=== PATIENT | male | born 1950 | race Caucasian/White ===

== ENCOUNTER 2016-12-26 22:12 | Emergency (ER) | payer MEDICARE, BC ==
[~2016-12-26] VITALS: Ht 157.5 cm; Wt 62.0 kg
[~2016-12-26 22:12] MED LIST: AMOX875 PO; ASPI1TAB7 PO; ATOR10TA PO; BROV15NE INH; CLOP75TA PO; CYCL-36 PO; DEXI60CA3 PO; FLON0.053 EACH NARE; HYDR-3535 PO; HYDR25 PO; HYDR2TAB PO; KLOR8TAB PO; LIDO5DIS35 TD; METH4TAB6 PO; METO10 PO; MORP20SO PO; NEBI5 PO; NITR0.4S SL; PREG100 PO; SPIR25TA PO; SYMB80AE INH; TAMS0.4C4 PO; TIZA4CAP PO; ZOLP12.5 PO; [UNRECOGNIZED DRUG - CODE] SQ
[2016-12-26 22:17] VITALS: BP 118/68; PULSE 120; RESP 16; TEMP 97.5; O2SAT 90
[2016-12-26] MEDS ORDERED: HYDR-2374 PO (22:57)
[2016-12-26] MEDS ORDERED: ASPI-110 PO (22:57)
[2016-12-26] MEDS ORDERED: POTA8TAB3 PO (22:57)
[2016-12-26] MEDS ORDERED: ZOLP10TA3 PO (22:57)
[2016-12-26] MEDS ORDERED: FLUT50SP EACH NARE (22:57)
[2016-12-26] MEDS ORDERED: TIZA4CAP3 PO (22:57)
[2016-12-26] MEDS ORDERED: HYDR8TAB PO (22:57)
[2016-12-26] MEDS ORDERED: BYST5TAB2 PO (22:57)
[2016-12-26] MEDS ORDERED: LYRI100C PO ×2 (22:57)
[2016-12-26] MEDS ORDERED: ATOR10TA15 PO (22:57)
[2016-12-26] MEDS ORDERED: BROV15NE NEB (22:57)
[2016-12-26] MEDS ORDERED: METH4TAB6 PO (22:57)
[2016-12-26] MEDS ORDERED: MORPPOW (22:57)
[2016-12-26] MEDS ORDERED: SPIR25TA PO (22:57)
[2016-12-26] MEDS ORDERED: INFL100P (22:57)
[2016-12-26] MEDS ORDERED: oxygen (22:57)
[2016-12-26] MEDS ORDERED: SYMB80AE INH (22:57)
[2016-12-26] MEDS ORDERED: TAMS0.4C4 PO (22:57)
[2016-12-26] MEDS ORDERED: METO10TA PO (22:57)
[2016-12-26] MEDS ORDERED: DEXI60CA PO (22:57)
[2016-12-26] MEDS ORDERED: CLOP75TA PO (22:57)
[2016-12-26] MEDS ORDERED: METH-759 PO (22:57)
[2016-12-26] MEDS ORDERED: CYCL1TAB29 PO (22:57)
--- NOTE | 2016-12-26 23:00 | PD ---
HPI Chief Complaint: Laceration/Skin Injury Time Seen by Provider: 22:45 Travel History International Travel<30 days: No Contact w/Intl Traveler<30days: No Traveled to known affect area: No History of Present Illness HPI This is a 66 year old male who is on chronic steroids who presents to the emergency department having had his dog tear his skin because he was excited to see him with his paws. He is reporting a skin tear, constant, moderate severity involving his left lower extremity with no other associated injuries. PFSH Past Medical History Hx Anticoagulant Therapy: Yes Arthritis: No Asthma: Yes (EMPHYSEMA ON O2 AT HOME) Autoimmune Disease: No Blood Disorders: No Heart Rhythm Problems: Yes ("IRREGULAR" HEART RATE) Cancer: No Cardiomyopathy: Yes Cardiovascular Problems: Yes (STENTS, ENLARGED HEART) High Cholesterol: Yes Chemotherapy: No Chest Pain: Yes Congestive Heart Failure: Yes Cirrhosis: Yes COPD: Yes Cerebrovascular Accident: No Diabetes: No Diminished Hearing: No Endocrine: No Gastrointestinal Disorders: Yes (ENLARGED LIVER) GERD: Yes Genitourinary: Yes (ENLARGED KIDNEY) Headaches: No Hepatitis: No Hiatal Hernia: No Hypertension: Yes Immune Disorder: Yes (ANKYLOSIS SPONDYLITIS) Kidney Stones: No Medical other: Yes (ARTHRITIS, BACK AND NECK PROBLEMS, ) Musculoskeletal: Yes (ANKLOSIS SPONDYLOSIS) Neurologic: No Psychiatric: No Reproductive: No Respiratory: Yes (CONSTANT O2) Migraines: No Myocardial Infarction: No Radiation Therapy: No Renal Failure: No Seizures: No Sleep Apnea: No Thyroid Disease: No Ulcer: Yes Influenza Vaccination: Yes Past Surgical History Abdominal Surgery: No AICD: No Appendectomy: No Arteriovenous Shunt: No Body Medical Devices: SPINAL CORD STIMULATOR Cardiac Surgery: No Cholecystectomy: No Ear Surgery: No Endocrine Surgery: No Eye Surgery: Yes (CATARACT SURGERY, BILATERAL) Genitourinary Surgery: No Gynecologic Surgery: No Insulin Pump: No Joint Replacement: No Neurologic Surgery: Yes (SPINAL CORD STIMULATOR) Oral Surgery: No Pacemaker: No Thoracic Surgery: No Other Surgery: Yes Social History Alcohol Use: No Tobacco Use: Yes (1ppd ) Substance Use: No Allergies-Medications (Allergen,Severity, Reaction): Coded Allergies: Corticosteroids (Verified Allergy, Severe, PT ALLERGIC TO " INJECTABLE STEROIDS", 12/26/16) Inapsine (Verified Allergy, Severe, " SKIN CRAWLING", 12/26/16) Nitroglycerin (Verified Allergy, Severe, RASH, 12/26/16) PT STATES HE IS NOT ALLERGIC Reported Meds & Prescriptions Reported Meds & Active Scripts Active Reported Remicade Inj (Infliximab) 100 Mg Inj Brovana Neb (Arformoterol Neb) 15 Mcg/2 Ml Vial 1 Nebule NEB BID Maintenance treatment of bronchoconstriction in COPD. [oxygen ] 2 Liter DAILY Relistor (Methylnaltrexone [place]) 150 Mg Tab 0.4 Mg PO DAILY Symbicort Inh (Budesonide/Formoterol Fumarate) 80-4.5 Mcg/Act Aero 1 Puff INH Q12HR Fluticasone Nasal [place] 50 Mcg/Act Naspr 50 Mcg EACH NARE BID 50 mcg/spray Morphine Sulfate 1 Pow Pow Hydrocodone-Acetaminophen 10-300 Tab 1 Tab PO Q6H PRN Hydromorphone (Hydromorphone HCl) 8 Mg Tab 8 Mg PO Q6H PRN Zolpidem (Zolpidem Tartrate) 10 Mg Tab 12.5 Mg PO HS PRN Flexeril (Cyclobenzaprine HCl) 10 Mg Tab 10 Mg PO TID Bystolic (Nebivolol) 5 Mg Tab 5 Mg PO DAILY Methylprednisolone 4 Mg Tab 2 Mg PO DAILY Spironolactone 25 Mg Tab 25 Mg PO BIDPC Tizanidine (Tizanidine HCl) 4 Mg Cap 4 Mg PO BID Metoclopramide (Metoclopramide HCl) 10 Mg Tab 10 Mg PO BID Aspirin 81 (Aspirin) 81 Mg Tabdr 81 Mg PO BID Lyrica (Pregabalin) 100 Mg Cap 100 Mg PO BID Lyrica (Pregabalin) 100 Mg Cap 100 Mg PO DAILY Tamsulosin (Tamsulosin HCl) 0.4 Mg Cap 0.4 Mg PO HS Potassium Chloride CR (Potassium Chloride) 8 Meq Tab 8 Meq PO BID Atorvastatin (Atorvastatin Calcium) 10 Mg Tab 10 Mg PO HS Clopidogrel (Clopidogrel Bisulfate) 75 Mg Tab 75 Mg PO DAILY Dexilant (Dexlansoprazole) 60 Mg Cap 60 Mg PO DAILY Review of Systems Except as stated in HPI: all other systems reviewed are Neg Physical Exam Narrative GENERAL: Well-appearing, no acute distress, nontoxic SKIN: 9x3 laceration along the anterior aspect of the left leg with exposed adipose tissue, 2x2 cm avulsed flap along the distal left lower leg. HEAD: Atraumatic. Normocephalic. ENT: No nasal bleeding or discharge. Moist mucous membranes MUSCULOSKELETAL: No obvious deformities. No clubbing. No cyanosis. No edema. NEUROLOGICAL: Awake and alert. No obvious cranial nerve deficits. Motor grossly within normal limits. Normal speech. PSYCHIATRIC: Appropriate mood and affect; insight and judgment normal. Data Data Last Documented VS Vital Signs Date Time Temp Pulse Resp B/P Pulse Ox O2 Delivery O2 Flow Rate FiO2 12/26/16 23:55 18 12/26/16 22:17 97.5 120 118/68 90 Nasal Cannula 2 Orders Acetamin-Hydrocod 325-5 Mg ([place] 5-325 (12/26/16 23:15) Lidocaine Pf 1% Inj (Xylocaine-Mpf 1% In (12/26/16 23:45) MDM Medical Decision Making Medical Screen Exam Complete: Yes Emergency Medical Condition: Yes Interpretation(s) afebrile, tachycardic, on home oxygen Differential Diagnosis Laceration Narrative Course This is a 70-year-old male who presents to the emergency department having sustained a skin tear due to a dog's cause pulling at his leg. He has very frail skin due to history of prednisone use. He has baseline tachycardia and is on oxygen at home due to multiple chronic medical conditions. He is immune compromised. I repaired the patients wound. He is at very high risk for infection. Pt. will be placed on prophylactic antibiotics. Diagnosis Primary Impression: Laceration Patient Instructions: General Instructions Additional Instructions: If you develop fevers, redness, swelling, or discharge from your wound return to the emergency room. Keep your wound dry for 24 hours. After that time, wash gently with warm soap and water. Do not use peroxide. Do not soak in baths or go swimming. Have your wound rechecked for suture removal in 14 days. Med/Other Pt SpecificInfo: Prescription(s) given Scripts Amoxicillin-Clavulanate (Augmentin)875-125 mg Tvt801 Mg PO BID #20 TAB Ref 0 not for use in CrCl <30 ml/min. Prov:Sammi Bravo MD 12/27/16 Disposition: 01 DISCHARGE HOME Condition: Stable Sammi Bravo MD Dec 26, 2016 23:00
[2016-12-26] MEDS ORDERED: ACETAMINOPHEN/HYDROcodone 325 MG/5 MG TAB PO ONE (23:15)
[2016-12-26] MEDS ORDERED: LIDOCAINE HCL 1% PF 30 ML VIAL INFIL ONE (23:45)
[2016-12-26 23:55] VITALS: RESP 18
[2016-12-27] MEDS ORDERED: AUGM875T PO (00:38)
== END 2016-12-27 01:16 | disposition home or self-care (01) ==
LOC: NEPE 22:12
DX: S81.812A Laceration without foreign body, left lower leg, initial encounter (principal); F17.210 Nicotine dependence, cigarettes, uncomplicated; I42.9 Cardiomyopathy, unspecified; E78.00 Pure hypercholesterolemia, unspecified; I50.9 Heart failure, unspecified; J44.9 Chronic obstructive pulmonary disease, unspecified; I10 Essential (primary) hypertension; Z99.81 Dependence on supplemental oxygen; W54.8XXA Other contact with dog, initial encounter; Y99.8 Other external cause status
CPT/HCPCS: 12004

== ENCOUNTER 2018-03-23 18:39 | Observation (INO) | payer MEDICARE, BC ==
[~2018-03-23] VITALS: Ht 157.5 cm; Wt 65.0 kg
[~2018-03-23 18:39] MED LIST changes: -AMOX875 PO; +ASPI1TAB57 PO; -ASPI1TAB7 PO; -ATOR10TA PO; +ATOR10TA15 PO; +AUGM875T PO; -BROV15NE INH; +BROV15NE NEB; +BYST5TAB2 PO; -CYCL-36 PO; +CYCL10TA PO; +DEXI60CA PO; -DEXI60CA3 PO; -FLON0.053 EACH NARE; +FLUT50SP EACH NARE; +HYDR-2374 PO; -HYDR-3535 PO; -HYDR25 PO; -HYDR2TAB PO; +HYDR8TAB PO; +INFL100P; -KLOR8TAB PO; -LIDO5DIS35 TD; +LYRI100C PO; +METH-759 PO; -METO10 PO; +METO10TA PO; -MORP20SO PO; +MORPPOW; -NEBI5 PO; -NITR0.4S SL; +POTA8TAB3 PO; -PREG100 PO; -TIZA4CAP PO; +TIZA4CAP3 PO; +ZOLP10TA3 PO; -ZOLP12.5 PO; -[UNRECOGNIZED DRUG - CODE] SQ; +oxygen
[2018-03-23] MEDS ORDERED: IOHEXOL 350 MG/ML 10 ML VIAL (for RAD DIAG) IVCONTRAST ONE (18:40)
[2018-03-23 18:44] VITALS: BP 116/57; PULSE 105; RESP 26; TEMP 98.5; O2SAT 93
[2018-03-23] MEDS ORDERED: RESP: ALBUTEROL 2.5 MG/IPRATROPIUM 0.5 MG NEB (SCH) INH ONE (19:15)
[2018-03-23] MEDS ORDERED: SODIUM CHLORIDE 0.9% FLUSH 10 ML FLUSH IVF PRN (19:15)
[2018-03-23] MEDS ORDERED: ASPI81CH6 CHEW (19:40)
[2018-03-23] MEDS ORDERED: FLUT50SP EACH NARE (19:40)
[2018-03-23] MEDS ORDERED: METH8TAB3 PO (19:40)
[2018-03-23] MEDS ORDERED: BETA0.052 TOPICAL (19:40)
[2018-03-23] MEDS ORDERED: LINA290C PO (19:40)
[2018-03-23] MEDS ORDERED: POTA8CAP PO (19:40)
[2018-03-23] MEDS ORDERED: DEXI60CA3 PO (19:40)
[2018-03-23] MEDS ORDERED: LIDO1ADH4 (19:40)
[2018-03-23] MEDS ORDERED: CYCL10TA PO (19:40)
[2018-03-23] MEDS ORDERED: BYST5TAB2 PO (19:40)
--- NOTE | 2018-03-23 19:41 | PD ---
HPI Chief Complaint: Respiratory Symptoms Time Seen by Provider: 19:05 Travel History International Travel<30 days: No Contact w/Intl Traveler<30days: No Traveled to known affect area: No History of Present Illness HPI The patient is a 67 year old male who presents to the [facility] emergency department with a history of reportedly not feeling well since Friday morning. The patient reports that he began to have shortness of breath, chest tightness and chest pressure. The patient denies having any worsening cough or more productive cough. The patient has a known history of COPD and is chronically on 2 L nasal cannula O2 continuously. The patient additionally reports that since Friday he has had soft frequent stools. He reports that on Friday he had 5-6 loose stools that were brown in color, and then this morning he had a recurrence of multiple soft stools. He reports having pain in the right lower quadrant of the abdomen. The patient reports that he first began to notice the pain down in the right groin 1 month ago that would come and go. He reports that he then noticed swelling 1-2 weeks ago in the right groin. The patient was seen by his primary care physician, Dr. Crescencio Macias , earlier today and sent to ER for further evaluation and testing. He denies having any known recent fevers. He does report having a history of coronary artery disease status post single stent placement 5 years ago. 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 He reports that he last had a stress test on a couple of years ago. He is on daily aspirin and Plavix. According his medication record he is also on a daily dose of methylprednisolone. He is unsure whether he is on this medication for his COPD or ankylosing spondylitis. He cannot recall when he first started taking the methylprednisolone. On review of systems otherwise, the patient denies having any new neck or back pain , vomiting, new urinary symptoms (chronic history of urinary hesitancy), or neurologic symptoms. [facility] Past Medical History Narrative Medical The patient's past medical history is significant for COPD on continuous O2 at 2 L nasal cannula, history of coronary artery disease status post stent placement 5 years ago, history of cardiac enlargement, history of an irregular heartbeat, history of ankylosing spondylitis, acid reflux, hypertension, hyperlipidemia. Hx Anticoagulant Therapy: Yes Arthritis: No Asthma: Yes (EMPHYSEMA ON O2 AT HOME) Autoimmune Disease: No Blood Disorders: No Heart Rhythm Problems: Yes ("IRREGULAR" HEART RATE) Cancer: No Cardiomyopathy: Yes Cardiovascular Problems: Yes (STENTS, ENLARGED HEART) High Cholesterol: Yes Chemotherapy: No Chest Pain: Yes Congestive Heart Failure: Yes Cirrhosis: Yes COPD: Yes Cerebrovascular Accident: No Diabetes: No Diminished Hearing: No Endocrine: No Gastrointestinal Disorders: Yes (ENLARGED LIVER) GERD: Yes Genitourinary: Yes (ENLARGED KIDNEY) Headaches: No Hepatitis: No Hiatal Hernia: No Hypertension: Yes Immune Disorder: Yes (ANKYLOSIS SPONDYLITIS) Kidney Stones: No Medical other: Yes (ARTHRITIS, BACK AND NECK PROBLEMS, ) Musculoskeletal: Yes (ANKLOSIS SPONDYLOSIS) Neurologic: No Psychiatric: No Reproductive: No Respiratory: Yes (CONSTANT O2) Migraines: No Myocardial Infarction: No Radiation Therapy: No Renal Failure: No Seizures: No Sleep Apnea: No Thyroid Disease: No Ulcer: Yes Past Surgical History Narrative Surgical The patient's past surgical history is significant for spinal cord stimulator implant placement and then removal, cataract surgery bilaterally, cardiac catheterization with stent placement Abdominal Surgery: No AICD: No Appendectomy: No Arteriovenous Shunt: No Body Medical Devices: SPINAL CORD STIMULATOR Cardiac Surgery: No Cholecystectomy: No Ear Surgery: No Endocrine Surgery: No Eye Surgery: Yes (CATARACT SURGERY, BILATERAL) Genitourinary Surgery: No Gynecologic Surgery: No Insulin Pump: No Joint Replacement: No Neurologic Surgery: Yes (SPINAL CORD STIMULATOR, removed) Oral Surgery: No Pacemaker: No Thoracic Surgery: No Other Surgery: Yes Social History Alcohol Use: No Tobacco Use: Yes (1ppd ) Substance Use: No Allergies-Medications (Allergen,Severity, Reaction): Coded Allergies: amcinonide (Unverified Allergy, Severe, PT ALLERGIC TO " INJECTABLE STEROIDS", 03/23/18) beclomethasone (Unverified Allergy, Severe, PT ALLERGIC TO " INJECTABLE STEROIDS", 03/23/18) betamethasone (Unverified Allergy, Severe, PT ALLERGIC TO " INJECTABLE STEROIDS", 03/23/18) desoximetasone (Unverified Allergy, Severe, PT ALLERGIC TO " INJECTABLE STEROIDS", 03/23/18) dexamethasone (Unverified Allergy, Severe, PT ALLERGIC TO " INJECTABLE STEROIDS", 03/23/18) droperidol (Unverified Allergy, Severe, " SKIN CRAWLING", 03/23/18) fludrocortisone (Unverified Allergy, Severe, PT ALLERGIC TO " INJECTABLE STEROIDS", 03/23/18) flunisolide (Unverified Allergy, Severe, PT ALLERGIC TO " INJECTABLE STEROIDS", 03/23/18) fluocinolone acetonide (Unverified Allergy, Severe, PT ALLERGIC TO " INJECTABLE STEROIDS", 03/23/18) fluocinonide (Unverified Allergy, Severe, PT ALLERGIC TO " INJECTABLE STEROIDS", 03/23/18) fluorometholone (Unverified Allergy, Severe, PT ALLERGIC TO " INJECTABLE STEROIDS", 03/23/18) flurandrenolide (Unverified Allergy, Severe, PT ALLERGIC TO " INJECTABLE STEROIDS", 03/23/18) fluticasone (Unverified Allergy, Severe, PT ALLERGIC TO " INJECTABLE STEROIDS", 03/23/18) fluticasone furoate (Unverified Allergy, Severe, PT ALLERGIC TO " INJECTABLE STEROIDS", 03/23/18) hydrocortisone (Unverified Allergy, Severe, PT ALLERGIC TO " INJECTABLE STEROIDS", 03/23/18) methylprednisolone (Unverified Allergy, Severe, PT ALLERGIC TO " INJECTABLE STEROIDS", 03/23/18) mometasone furoate (Unverified Allergy, Severe, PT ALLERGIC TO " INJECTABLE STEROIDS", 03/23/18) nitroglycerin (Unverified Allergy, Severe, RASH, 03/23/18) PT STATES HE IS NOT ALLERGIC prednisolone (Unverified Allergy, Severe, PT ALLERGIC TO " INJECTABLE STEROIDS", 03/23/18) prednisone (Unverified Allergy, Severe, PT ALLERGIC TO " INJECTABLE STEROIDS", 03/23/18) triamcinolone (Unverified Allergy, Severe, PT ALLERGIC TO " INJECTABLE STEROIDS", 03/23/18) Reported Meds & Prescriptions Reported Meds & Active Scripts Active Reported Linzess (Linaclotide) 290 Mcg Cap 290 Mcg PO DAILY Lidoderm (Lidocaine) 5 % Adh..patch Betamethasone Dipropionate Topical 0.05% Cream 1 Applic TOPICAL BID Fluticasone Nasal [place] 50 Mcg/Act Naspr 50 Mcg EACH NARE BID PRN 50 mcg/spray Flexeril (Cyclobenzaprine HCl) 10 Mg Tab 10 Mg PO HS Bystolic (Nebivolol) 5 Mg Tab 5 Mg PO HS Methylprednisolone 8 Mg Tab 10 Mg PO HS Aspirin Low Dose (Aspirin) 81 Mg Chew 81 Mg CHEW DAILY Potassium Chloride ER (Potassium Chloride) 8 Meq Cap 8 Meq PO BID Dexilant (Dexlansoprazole) 60 Mg Cap.drJodibp 60 Mg PO DAILY Remicade Inj (Infliximab) 100 Mg Inj Brovana Neb (Arformoterol Neb) 15 Mcg/2 Ml Vial 1 Nebule NEB BID Maintenance treatment of bronchoconstriction in COPD. [oxygen ] 2 Liter DAILY Symbicort Inh (Budesonide/Formoterol Fumarate) 80-4.5 Mcg/Act Aero 1 Puff INH Q12HR Morphine Sulfate 1 Pow Pow Hydrocodone-Acetaminophen 10-300 Tab 1 Tab PO Q6H PRN Hydromorphone (Hydromorphone HCl) 8 Mg Tab 8 Mg PO Q6H PRN Zolpidem (Zolpidem Tartrate) 10 Mg Tab 12.5 Mg PO HS PRN Spironolactone 25 Mg Tab 25 Mg PO BIDPC Tizanidine (Tizanidine HCl) 4 Mg Cap 4 Mg PO BID Metoclopramide (Metoclopramide HCl) 10 Mg Tab 10 Mg PO BID Lyrica (Pregabalin) 100 Mg Cap 100 Mg PO BID Tamsulosin (Tamsulosin HCl) 0.4 Mg Cap 0.4 Mg PO HS Atorvastatin (Atorvastatin Calcium) 10 Mg Tab 10 Mg PO HS Clopidogrel (Clopidogrel Bisulfate) 75 Mg Tab 75 Mg PO DAILY Review of Systems Except as stated in HPI: all other systems reviewed are Neg General / Constitutional: No: Fever Eyes: No: Visual changes HENT: No: Headaches Cardiovascular: Positive: Chest Pain or Discomfort, Dyspnea on exertion Respiratory: Positive: Cough, No: Shortness of Breath Gastrointestinal: Positive: Nausea, Diarrhea, Abdominal Pain, Changes in Bowel Habits, No: Vomiting, Hematemesis, Hematochezia, Indigestion, Loss of Appetite Genitourinary: No: Dysuria Musculoskeletal: No: Pain Skin: No Rash Neurologic: No: Weakness, Focal Abnormalities, Change in Mentation, Slurred Speech, Sensory Disturbance Psychiatric: No: Depression Endocrine: No: Polydipsia Hematologic/Lymphatic: No: Easy Bruising Physical Exam Narrative General: The patient is a well-developed thin appearing male, no acute distress. O2 saturations on 2 L are 97%. Head and Neck exam: Head is normocephalic atraumatic. Eyes: EOMI, pupils are equal round and reactive to light. Nose: Midline septum with pink mucous membranes Mouth: Dentition unremarkable. Moist mucus membranes. Posterior oropharynx is not erythematous. No tonsillar hypertrophy. Uvula midline. Airway patent. Neck: No palpable lymphadenopathy. No nuchal rigidity. No thyromegaly. Cardiovascular: Regular rate and rhythm without murmurs, gallops, or rubs. No pulse deficit to the extremities on simultaneous auscultation and palpation of his radial artery. Lungs: The patient has soft expiratory wheezes anteriorly. No rhonchi, no wheezes. No accessory muscle use noted. Abdomen: Soft, with tenderness on palpation of bilateral lower quadrants of the abdomen worse in the right lower quadrant compared to the left. Normal bowel sounds are audible. No guarding, rebound, or rigidity. The patient has tenderness on palpation over McBurney's point. Negative Su sign. The patient has a palpable hernia in the right groin that is able to be reduced. The patient does however report exquisite tenderness on palpation over the hernia site. Extremities: No clubbing, cyanosis, or edema. 2+ pulses in all 4 extremities. No calf tenderness on palpation. The patient has a clean, dry, and intact bandage in place on the left lower extremity just below the knee. The patient reports that 2 weeks ago he acquired a skin tear on a box that he was picking up. The patient has a V-shaped skin tear that appears to be healing well underlying the bandage. Back: No spinous process tenderness to palpation. No costovertebral angle tenderness to palpation. The patient has a severe curvature of the spine with kyphosis noted. Neurologic Exam: Grossly nonfocal. Skin Exam: No rash noted. Intact skin that is warm and dry. Data Data Last Documented VS Vital Signs Date Time Temp Pulse Resp B/P (MAP) Pulse Ox O2 Delivery O2 Flow Rate FiO2 03/23/18 23:56 76 18 104/58 (73) 99 Nasal Cannula 2.00 03/23/18 18:44 98.5 Orders Orders Complete Blood Count With Diff (03/23/18 19:07) Comprehensive Metabolic Panel (03/23/18 19:07) B-Type Natriuretic Peptide (03/23/18 19:07) Act Partial Throm Time (Ptt) (03/23/18 19:07) Prothrombin Time / Inr (Pt) (03/23/18 19:07) Magnesium (Mg) (03/23/18 19:07) Ckmb (Isoenzyme) Profile (03/23/18 19:) Troponin I (03/23/18 19:) Iv Access Insert/Monitor (03/23/18 19:07) Electrocardiogram (03/23/18 19:) Ecg Monitoring (03/23/18 19:) Oximetry (03/23/18 19:) Oxygen Administration (03/23/18 19:) Chest, Single Ap (03/23/18 19:) Sodium Chloride 0.9% Flush (Ns Flush) (03/23/18 19:15) Albuterol-Ipratropium Neb (Duoneb Neb) (03/23/18 19:15) C-Reactive Protein (Crp) (03/23/18 19:29) Ct Abd/Pel W Iv Contrast(Rout) (03/23/18 19:29) Morphine Inj (Morphine Inj) (03/23/18 20:30) Ondansetron Inj (Zofran Inj) (03/23/18 20:30) Sodium Chlor 0.9% 1000 Ml Inj (Ns 1000 M (03/23/18 20:30) Blood Culture (03/23/18 20:58) Lactic Acid Sepsis Protocol (03/23/18 20:58) Iohexol 350 Inj (Omnipaque 350 Inj) (03/23/18 18:40) Piperacil-Tazo 3.375 Gm Premix (Zosyn 3. (03/23/18 23:30) Vancomycin Inj (Vancomycin Inj) (03/23/18 23:30) Enteric Path (Stool) (03/24/18 00:25) C Diff Toxin Pcr (03/24/18 00:25) Stool Wbc (Leukocytes) (03/24/18 00:25) Admit Order (Ed Use Only) (03/24/18 00:25) Labs Laboratory Tests Test 03/23/18 20:30 03/23/18 21:08 03/23/18 21:26 White Blood Count 14.6 TH/MM3 Red Blood Count 4.61 MIL/MM3 Hemoglobin 9.8 GM/DL Hematocrit 30.6 % Mean Corpuscular Volume 66.3 FL Mean Corpuscular Hemoglobin 21.2 PG Mean Corpuscular Hemoglobin Concent 32.0 % Red Cell Distribution Width 18.9 % Platelet Count 403 TH/MM3 Mean Platelet Volume 7.6 FL Neutrophils (%) (Auto) 75.2 % Lymphocytes (%) (Auto) 12.8 % Monocytes (%) (Auto) 10.7 % Eosinophils (%) (Auto) 0.8 % Basophils (%) (Auto) 0.5 % Neutrophils # (Auto) 11.0 TH/MM3 Lymphocytes # (Auto) 1.9 TH/MM3 Monocytes # (Auto) 1.6 TH/MM3 Eosinophils # (Auto) 0.1 TH/MM3 Basophils # (Auto) 0.1 TH/MM3 CBC Comment DIFF FINAL Differential Comment Prothrombin Time 9.9 SEC Prothromb Time International Ratio 1.0 RATIO Activated Partial Thromboplast Time 21.9 SEC C-Reactive Protein 11.80 MG/DL B-Type Natriuretic Peptide 18 PG/ML Lactic Acid Level 1.1 mmol/L Blood Urea Nitrogen 12 MG/DL Creatinine 0.73 MG/DL Random Glucose 83 MG/DL Total Protein 7.3 GM/DL Albumin 2.9 GM/DL Calcium Level 9.4 MG/DL Magnesium Level 2.0 MG/DL Alkaline Phosphatase 60 U/L Aspartate Amino Transf (AST/SGOT) 28 U/L Alanine Aminotransferase (ALT/SGPT) 23 U/L Total Bilirubin 0.3 MG/DL Sodium Level 135 MEQ/L Potassium Level 3.7 MEQ/L Chloride Level 100 MEQ/L Carbon Dioxide Level 26.6 MEQ/L Anion Gap 8 MEQ/L Estimat Glomerular Filtration Rate 108 ML/MIN Total Creatine Kinase 29 U/L Troponin I LESS THAN 0.02 NG/ML [facility] Medical Decision Making Medical Screen Exam Complete: Yes Emergency Medical Condition: Yes Medical Record Reviewed: Yes Interpretation(s) CBC & BMP Diagram 03/23/18 20:30 03/23/18 21:26 Total Protein 7.3, Albumin 2.9 L, Calcium Level 9.4, Magnesium Level 2.0, Alkaline Phosphatase 60, Aspartate Amino Transf (AST/SGOT) 28, Alanine Aminotransferase (ALT/SGPT) 23, Total Bilirubin 0.3 Last Impressions Abdomen/Pelvis CT 03/23/181928 Signed Impressions: Service Date/Time: Friday, March 23, 2018 22:41 - CONCLUSION: Minimal airspace disease in the lung bases. Solid organs are unremarkable. Pronounced rightward lumbar scoliosis. Keanu Null MD Chest X-Ray 03/23/187 Signed Impressions: Service Date/Time: Friday, March 23, 2018 19:46 - CONCLUSION: 1. No acute findings. Basilar lung scarring and pleural thickening. Lauro Orozco MD Differential Diagnosis Acute coronary syndrome, versus congestive heart failure exacerbation, versus COPD exacerbation, versus incarcerated hernia, versus appendicitis Narrative Course During the course of the patient's emergency department visit, the patient's history, examination, and differential diagnosis were reviewed with the patient. The patient was placed on a manager monitoring with oximetry and frequent blood pressure monitoring. The patient had IV access obtained and blood work sent for analysis. CT scan of the abdomen and pelvis has been ordered. A chest x-ray has been ordered. The patient had an EKG done on arrival. The patient's EKG revealed sinus rhythm with a heart rate of 82, QRS duration is 82 ms, QTC [address] segment elevation is noted. T waves are inverted in V1. The patient was initially provided a DuoNeb 1. The patient was started on normal saline IV fluids at a maintenance rate. The patient was given morphine for pain, Zofran for nausea. The patient's laboratory studies were reviewed and remarkable for a CBC that shows a leukocytosis of 14.6 with a left shift, neutrophil predominance of 75.2 , hemoglobin 9.8 which is decreased compared to a prior level of 12. A rectal examination was done, no significant stool was in the rectal vault and the mucus was Hemoccult negative. CMP is remarkable for sodium of 135, cardiac enzymes within normal limits. C-reactive protein is elevated at 11.8, BNP is 18 , lactic acid is within normal limits at 1.1, PT 9.9, PTT 21.9. Urinalysis shows concentrated urine, trace occult blood, otherwise unremarkable per Radiology studies were reviewed and remarkable for a chest x-ray that shows no acute findings, CT scan of the abdomen and pelvis that shows minimal airspace disease in the lung bases, solid organs that are unremarkable, pronounced rightward lumbar scoliosis. No other acute abnormality. Given the patient's leukocytosis and abdominal pain the patient was given coverage with broad-spectrum antibiotic after blood cultures 2 were drawn. The patient additionally had stool studies ordered. The patient was given Zosyn 3.375 g IV, vancomycin 1 g IV. The patient's results were discussed with the patient, including the plan of care. I explained that further testing and/ or monitoring is indicated based on the patient's history, examination, and/ or laboratory findings. Therefore, I recommended admission for additional evaluation. The patient expressed understanding and was agreeable with this plan. The patient was admitted to the hospital in guarded condition and sent to a bed under the care of the [facility] service. Sepsis Criteria SIRS Criteria (2 or more): Heart rate over 90, WBC > 61557, < 4000 or > 10% bands Sepsis Criteria (SIRS+source): Infect source susp/known Physician Communication Physician Communication The patient's case including history, pertinent physical examination findings, and laboratory studies were discussed with Dr. Colmenares. It was agreed that the patient would be admitted to the [facility] service. Diagnosis Primary Impression: Abdominal pain Qualified Codes: R10.30 - Lower abdominal pain, unspecified Additional Impressions: COPD exacerbation Diarrhea Qualified Codes: R19.7 - Diarrhea, unspecified SIRS (systemic inflammatory response syndrome) Admitting Information Admitting Physician Requests: Admit Perla Pope MD March 23, 2018 19:41
[2018-03-23] MEDS ORDERED: MORPHINE SULFATE 4 MG/ML INJ IV PUSH ONE (20:30)
[2018-03-23] MEDS ORDERED: ONDANSETRON HCL 4 MG/2 ML VIAL IV PUSH ONE (20:30)
--- NOTE | 2018-03-23 20:33 | RADRPT ---
EXAM DATE/TIME: 03/23/2018 19:46 [facility] COMPARISON: No previous studies available for comparison. INDICATIONS : Short of breath. MEDICAL HISTORY : None. SURGICAL HISTORY : None. ENCOUNTER: Initial ACUITY: 3 days PAIN SCORE: 3/10 LOCATION: Bilateral chest FINDINGS: No focal consolidation. Minimal scarring at the costophrenic angles. Calcified granuloma right lung b ase. Tortuous aorta. No pneumothorax. Pleural thickening. CONCLUSION: 1. No acute findings. Basilar lung scarring and pleural thickening. Lauro Orozco MD on March 23, 2018 at 20:30 Board Certified Radiologist. This report was verified electronically.
[2018-03-23] MEDS: SODIUM CHLOR 0.9% 1000 ML INJ 1,000 ML IV SCH (20:41)
[2018-03-23 20:47] LABS: BASOPHIL # 0.1 TH/MM3 (0-0.2); BASOPHIL % 0.5 % (0.0-2.0); EOSINOPHIL # 0.1 TH/MM3 (0-0.4); EOSINOPHIL % 0.8 % (0.0-4.0); HEMATOCRIT 30.6 % (39.0-51.0); HEMOGLOBIN 9.8 GM/DL (13.0-17.0); LYMPH % 12.8 % (9.0-44.0); LYMPHOCYTE # 1.9 TH/MM3 (1.0-4.8); MEAN CELL VOLUME 66.3 FL (80.0-100.0); MEAN CORPUSCULAR HEMOGLOBIN 21.2 PG (27.0-34.0); MEAN PLATELET VOLUME 7.6 FL (7.0-11.0); MONO % 10.7 % (0.0-8.0); MONOCYTE # 1.6 TH/MM3 (0-0.9); NEUT % 75.2 % (16.0-70.0); PLATELET COUNT 403 TH/MM3 (150-450); RED BLOOD COUNT 4.61 MIL/MM3 (4.50-5.90); RED CELL DISTRIBUTION WIDTH 18.9 % (11.6-17.2); WHITE BLOOD COUNT 14.6 TH/MM3 (4.0-11.0)
[2018-03-23 20:51] VITALS: BP 108/58; PULSE 85; RESP 20; O2SAT 99
[2018-03-23 20:59] LABS: PROTHROMBIN TIME - PATIENT 9.9 SEC (9.8-11.6)
[2018-03-23 21:54] LABS: ALBUMIN 2.9 GM/DL (3.4-5.0); ALT (GPT) 23 U/L (12-78); AST (GOT) 28 U/L (15-37); BICARBONATE 26.6 MEQ/L (21.0-32.0); BLOOD UREA NITROGEN 12 MG/DL (7-18); CALCIUM 9.4 MG/DL (8.5-10.1); CHLORIDE 100 MEQ/L (98-107); CREATININE 0.73 MG/DL (0.60-1.30); GLOMERULAR FILTRATION RATE 108 ML/MIN (>89); GLUCOSE,RANDOM 83 MG/DL (74-106); SODIUM (NA) 135 MEQ/L (136-145)
[2018-03-23 21:58] LABS: ALKALINE PHOSPHATASE 60 U/L (45-117); TOTAL BILIRUBIN ADULT 0.3 MG/DL (0.2-1.0); TOTAL PROTEIN 7.3 GM/DL (6.4-8.2); TROPONIN I LESS THAN 0.02 NG/ML (0.02-0.05)
[2018-03-23 22:08] VITALS: BP 113/65; PULSE 76; RESP 18; O2SAT 98
[2018-03-23 22:55] VITALS: BP 115/54; PULSE 78; RESP 18; O2SAT 100
--- NOTE | 2018-03-23 23:07 | RADRPT ---
EXAM DATE/TIME: 03/23/2018 22:41 [facility] COMPARISON: No previous studies available for comparison. INDICATIONS : Abdomen pain. IV CONTRAST: 95 cc Omnipaque 350 (iohexol) IV ORAL CONTRAST: No oral contrast ingested. RADIATION DOSE: 6.35 CTDIvol (mGy) MEDICAL HISTORY : Cardiovascular disease. Hypertension. Cirrhosis.GERD COPD SURGICAL HISTORY : None. ENCOUNTER: Initial ACUITY: 3 days PAIN SCALE: 6/10 LOCATION: abdomen TECHNIQUE: Volumetric scanning of the abdomen and pelvis was performed. Using automated exposure control and ad justment of the mA and/or kV according to patient size, radiation dose was kept as low as reasonably achievable to obtain optimal diagnostic quality images. DICOM format image data is available electro nically for review and comparison. FINDINGS: LOWER LUNGS: There some areas of consolidation both lower lung farias. LIVER: Homogeneous density without lesion. There is no dilation of the biliary tree. No calcified gallston es. SPLEEN: Normal size without lesion. PANCREAS: Within normal limits. KIDNEYS: Normal in size and shape. There is no mass, stone or hydronephrosis except for right renal cyst. ADRENAL GLANDS: Within normal limits. VASCULAR: There is no aortic aneurysm. BOWEL/MESENTERY: The stomach, small bowel, and colon demonstrate no acute abnormality. There is no free intraperitone al air or fluid. ABDOMINAL WALL: Within normal limits. RETROPERITONEUM: There is no lymphadenopathy. BLADDER: No wall thickening or mass. REPRODUCTIVE: Within normal limits. INGUINAL: There is no lymphadenopathy or hernia. MUSCULOSKELETAL: Pronounced rightward lumbar scoliosis. CONCLUSION: Minimal airspace disease in the lung bases. Solid organs are unremarkable. Pronounced rightward lumba r scoliosis. Keanu Null MD on March 23, 2018 at 23:04 Board Certified Radiologist. This report was verified electronically.
[2018-03-23] MEDS ORDERED: PIPERACIL-TAZO 3.375 GM PREMIX 50 ML IV ONE (23:30)
[2018-03-23] MEDS ORDERED: VANCOMYCIN INJ 1,000 MG in SODIUM CHLOR 0.9% 250 ML INJ 250 ML IV ONE (23:30)
[2018-03-23 23:56] VITALS: BP 104/58; PULSE 76; RESP 18; O2SAT 99
[2018-03-24] VITALS (11 sets, daily range): BP systolic 85–101; BP diastolic 52–58; PULSE 62–82; RESP 16–20; TEMP 98.1–98.5; O2SAT 97–100
[2018-03-24] MEDS ORDERED: RESP: ALBUTEROL 2.5 MG/3 ML NEB (PRN) INH (00:45)
[2018-03-24] MEDS ORDERED: SODIUM CHLORIDE 0.9% FLUSH 10 ML FLUSH IV FLUSH PRN (00:45)
[2018-03-24] MEDS ORDERED: AZITHROMYCIN 250 MG TAB PO ONE (01:00)
[2018-03-24] MEDS ORDERED: MORPHINE SULFATE 4 MG/ML INJ IV PUSH PRN (02:30)
[2018-03-24] MEDS ORDERED: MORPHINE SULFATE 2 MG/ML SYRINGE IV PUSH PRN (02:30)
[2018-03-24] MEDS: RESP: ALBUTEROL 2.5 MG/IPRATROPIUM 0.5 MG NEB (SCH) INH ×3 (03:26→21:04)
--- NOTE | 2018-03-24 04:01 | HHI.HP ---
[facility] Crescencio Macias III, Admission Diagnosis Copd exacerbation, Abdominal pain, diarrhea, leukocytosis Diagnoses: Chief Complaint: dyspnea, abdominal pain Travel History International Travel<30 Days: No Contact w/Intl Traveler <30 Da: No Traveled to Known Affected Are: No Sepsis Criteria SIRS Criteria (2 or more): Heart rate over 90, WBC > 99050, < 4000 or > 10% bands History of Present Illness 67 y/o male with a history of ankylosing spondylitis, COPD on home O2 2L, emphysema, HTN, Chronic pain, HLD, CAD, [place] presented to the ED with complaints of abdominal pain and sob since Friday Patient states on Friday morning he became short of breath with exertion, tightness in chest when he takes a deep breath, Productive cough with brownish sputum. He states today he followed up with his PCP who sent him to the ED for further evaluation. He denies fever or chills. He is also complaining of abdominal pain to the right groin that is sharp and intermittent with associated loose stools. No associated nausea or vomiting. Denies any red or black stools. Review of Systems Except as stated in HPI: all other systems reviewed are Neg Past Family Social History Past Medical History ankylosing spondylitis COPD on home O2 2L emphysema HTN Chronic pain HLD CAD MA Past Surgical History Heart stents Right elbow repair Reported Medications Reported Meds & Active Scripts Active Reported Linzess (Linaclotide) 290 Mcg Cap 290 Mcg PO DAILY Lidoderm (Lidocaine) 5 % Adh..patch Betamethasone Dipropionate Topical 0.05% Cream 1 Applic TOPICAL BID Fluticasone Nasal [place] 50 Mcg/Act Naspr 50 Mcg EACH NARE BID PRN 50 mcg/spray Flexeril (Cyclobenzaprine HCl) 10 Mg Tab 10 Mg PO HS Bystolic (Nebivolol) 5 Mg Tab 5 Mg PO HS Methylprednisolone 8 Mg Tab 10 Mg PO HS Aspirin Low Dose (Aspirin) 81 Mg Chew 81 Mg CHEW DAILY Potassium Chloride ER (Potassium Chloride) 8 Meq Cap 8 Meq PO BID Dexilant (Dexlansoprazole) 60 Mg Cap.dr.bp 60 Mg PO DAILY Remicade Inj (Infliximab) 100 Mg Inj Brovana Neb (Arformoterol Neb) 15 Mcg/2 Ml Vial 1 Nebule NEB BID Maintenance treatment of bronchoconstriction in COPD. [oxygen ] 2 Liter DAILY Symbicort Inh (Budesonide/Formoterol Fumarate) 80-4.5 Mcg/Act Aero 1 Puff INH Q12HR Morphine Sulfate 1 Pow Pow Hydrocodone-Acetaminophen 10-300 Tab 1 Tab PO Q6H PRN Hydromorphone (Hydromorphone HCl) 8 Mg Tab 8 Mg PO Q6H PRN Zolpidem (Zolpidem Tartrate) 10 Mg Tab 12.5 Mg PO HS PRN Spironolactone 25 Mg Tab 25 Mg PO BIDPC Tizanidine (Tizanidine HCl) 4 Mg Cap 4 Mg PO BID Metoclopramide (Metoclopramide HCl) 10 Mg Tab 10 Mg PO BID Lyrica (Pregabalin) 100 Mg Cap 100 Mg PO BID Tamsulosin (Tamsulosin HCl) 0.4 Mg Cap 0.4 Mg PO HS Atorvastatin (Atorvastatin Calcium) 10 Mg Tab 10 Mg PO HS Clopidogrel (Clopidogrel Bisulfate) 75 Mg Tab 75 Mg PO DAILY Allergies: Coded Allergies: amcinonide (Unverified Allergy, Severe, PT ALLERGIC TO " INJECTABLE STEROIDS", 03/23/18) beclomethasone (Unverified Allergy, Severe, PT ALLERGIC TO " INJECTABLE STEROIDS", 03/23/18) betamethasone (Unverified Allergy, Severe, PT ALLERGIC TO " INJECTABLE STEROIDS", 03/23/18) desoximetasone (Unverified Allergy, Severe, PT ALLERGIC TO " INJECTABLE STEROIDS", 03/23/18) dexamethasone (Unverified Allergy, Severe, PT ALLERGIC TO " INJECTABLE STEROIDS", 03/23/18) droperidol (Unverified Allergy, Severe, " SKIN CRAWLING", 03/23/18) fludrocortisone (Unverified Allergy, Severe, PT ALLERGIC TO " INJECTABLE STEROIDS", 03/23/18) flunisolide (Unverified Allergy, Severe, PT ALLERGIC TO " INJECTABLE STEROIDS", 03/23/18) fluocinolone acetonide (Unverified Allergy, Severe, PT ALLERGIC TO " INJECTABLE STEROIDS", 03/23/18) fluocinonide (Unverified Allergy, Severe, PT ALLERGIC TO " INJECTABLE STEROIDS", 03/23/18) fluorometholone (Unverified Allergy, Severe, PT ALLERGIC TO " INJECTABLE STEROIDS", 03/23/18) flurandrenolide (Unverified Allergy, Severe, PT ALLERGIC TO " INJECTABLE STEROIDS", 03/23/18) fluticasone (Unverified Allergy, Severe, PT ALLERGIC TO " INJECTABLE STEROIDS", 03/23/18) fluticasone furoate (Unverified Allergy, Severe, PT ALLERGIC TO " INJECTABLE STEROIDS", 03/23/18) hydrocortisone (Unverified Allergy, Severe, PT ALLERGIC TO " INJECTABLE STEROIDS", 03/23/18) methylprednisolone (Unverified Allergy, Severe, PT ALLERGIC TO " INJECTABLE STEROIDS", 03/23/18) mometasone furoate (Unverified Allergy, Severe, PT ALLERGIC TO " INJECTABLE STEROIDS", 03/23/18) nitroglycerin (Unverified Allergy, Severe, RASH, 03/23/18) PT STATES HE IS NOT ALLERGIC prednisolone (Unverified Allergy, Severe, PT ALLERGIC TO " INJECTABLE STEROIDS", 03/23/18) prednisone (Unverified Allergy, Severe, PT ALLERGIC TO " INJECTABLE STEROIDS", 03/23/18) triamcinolone (Unverified Allergy, Severe, PT ALLERGIC TO " INJECTABLE STEROIDS", 03/23/18) Active Ordered Medications Current Medications Medications (Trade) Dose Ordered Sig/Fady Route Start Time Stop Time Status Last Admin Sodium Chloride 1,000 ml @ 70 mls/hr [id number] IV 03/23/18 20:30 03/23/18 20:41 (NS Flush) 2 ml BID IV FLUSH 03/24/18 09:00 (NS Flush) 2 ml UNSCH PRN IV FLUSH 03/24/18 00:45 (Duoneb Neb) 1 ampule Q6HR NEB INH 03/24/18 04:00 03/24/18 03:26 (Albuterol Neb) 2.5 mg Q2HR NEB PRN INH 03/24/18 00:45 (Deltasone) 20 mg BID PO 03/24/18 09:00 (Aspirin Chew) 81 mg DAILY CHEW 03/24/18 09:00 (Symbicort 80-4.5 Mcg Inh) 1 puff Q12HR INH 03/24/18 09:00 (Plavix) 75 mg DAILY PO 03/24/18 09:00 (Reglan) 10 mg BID PO 03/24/18 09:00 (Bystolic) 5 mg HS PO 03/24/18 21:00 (Flomax) 0.4 mg HS PO 03/24/18 21:00 Patient Own Medication PT OWN: Arformoterol Neb (Brov... BID INH 03/24/18 09:00 Future Hold (Protonix) 40 mg DAILY PO 03/24/18 09:00 Patient Own Medication PT OWN: Linaclotide (Linzess) ... DAILY PO 03/24/18 09:00 Future Hold (Zithromax) 250 mg Q24H PO 03/24/18 22:00 03/27/18 22:01 Family History Dad: at age 54 of [place], DM Mom: CVA Social History Tobacco use: 1 PPD Alcohol use: Denies Physical Exam Vital Signs Vital Signs Date Time Temp Pulse Resp B/P (MAP) Pulse Ox O2 Delivery O2 Flow Rate FiO2 03/24/18 03:43 89/53 (65) 03/24/18 03:28 98 Nasal Cannula 2.00 03/24/18 03:22 98.1 70 16 89/53 (65) 97 03/24/18 03:01 20 03/24/18 02:22 03/24/18 01:08 80 18 101/58 (72) 97 Nasal Cannula 2.00 03/23/18 23:56 76 18 104/58 (73) 99 Nasal Cannula 2.00 03/23/18 22:55 78 18 115/54 (74) 100 Nasal Cannula 2.00 03/23/18 22:08 76 18 113/65 (81) 98 Nasal Cannula 2.00 03/23/18 20:51 85 20 108/58 (75) 99 Nasal Cannula 2.00 03/23/18 20:46 18 03/23/18 20:12 99 Nasal Cannula 2.00 03/23/18 18:44 98.5 105 26 116/57 (76) 93 Physical Exam GENERAL: This is a well-nourished, well-developed patient, in no apparent distress. SKIN: No rashes, ecchymoses or lesions. Cool and dry. HEAD: Atraumatic. Normocephalic. No temporal or scalp tenderness. EYES: Pupils equal round and reactive. Extraocular motions intact NECK: Trachea midline. No JVD or lymphadenopathy. CARDIOVASCULAR: Regular rate and rhythm without murmurs, gallops, or rubs. RESPIRATORY: Diminished bilateral breath sounds. No wheezes, rales, or rhonchi. GASTROINTESTINAL: Abdomen soft, RLQ tenderness, mildly distended. No hepato- splenomegaly, or palpable masses. No guarding. MUSCULOSKELETAL: Extremities without clubbing, cyanosis, or edema. No joint tenderness, effusion, or edema noted. No calf tenderness. NEUROLOGICAL: Awake and alert. Motor and sensory grossly within normal limits. Normal speech. Laboratory Laboratory Tests Test 03/23/18 20:30 03/23/18 21:08 03/23/18 21:26 White Blood Count 14.6 Red Blood Count 4.61 Hemoglobin 9.8 Hematocrit 30.6 Mean Corpuscular Volume 66.3 Mean Corpuscular Hemoglobin 21.2 Mean Corpuscular Hemoglobin Concent 32.0 Red Cell Distribution Width 18.9 Platelet Count 403 Mean Platelet Volume 7.6 Neutrophils (%) (Auto) 75.2 Lymphocytes (%) (Auto) 12.8 Monocytes (%) (Auto) 10.7 Eosinophils (%) (Auto) 0.8 Basophils (%) (Auto) 0.5 Neutrophils # (Auto) 11.0 Lymphocytes # (Auto) 1.9 Monocytes # (Auto) 1.6 Eosinophils # (Auto) 0.1 Basophils # (Auto) 0.1 CBC Comment DIFF FINAL Differential Comment Prothrombin Time 9.9 Prothromb Time International Ratio 1.0 Activated Partial Thromboplast Time 21.9 C-Reactive Protein 11.80 B-Type Natriuretic Peptide 18 Lactic Acid Level 1.1 Blood Urea Nitrogen 12 Creatinine 0.73 Random Glucose 83 Total Protein 7.3 Albumin 2.9 Calcium Level 9.4 Magnesium Level 2.0 Alkaline Phosphatase 60 Aspartate Amino Transf (AST/SGOT) 28 Alanine Aminotransferase (ALT/SGPT) 23 Total Bilirubin 0.3 Sodium Level 135 Potassium Level 3.7 Chloride Level 100 Carbon Dioxide Level 26.6 Anion Gap 8 Estimat Glomerular Filtration Rate 108 Total Creatine Kinase 29 Troponin I LESS THAN 0.02 Date/Time Source Procedure Growth Status 03/23/18 21:08 Blood Peripheral Aerobic Blood Culture Pending Received 03/23/18 21:08 Blood Peripheral Anaerobic Blood Culture Pending Received Result Diagram: 03/23/18202903/23/182125 Imaging Last Impressions Abdomen/Pelvis CT 03/23/18 192 Signed Impressions: Service Date/Time: Friday, March 23, 2018 22:41 - CONCLUSION: Minimal airspace disease in the lung bases. Solid organs are unremarkable. Pronounced rightward lumbar scoliosis. Keanu Null MD Chest X-Ray 03/23/18 190 Signed Impressions: Service Date/Time: Friday, March 23, 2018 19:46 - CONCLUSION: 1. No acute findings. Basilar lung scarring and pleural thickening. Lauro Orozco MD Capluz VTE Risk Assessment Caprini VTE Risk Assessment: No/Low Risk (score <= 1) Caprini Risk Assessment Model Point Value = 1 Point Value = 2 Point Value = 3 Point Value = 5 Age 41-60 Minor surgery BMI > 25 kg/m2 Swollen legs Varicose veins or History of unexplained or recurrent spontaneous Oral contraceptives or hormone replacement Sepsis (< 1 month) Serious lung disease, including pneumonia (< 1 month) Abnormal pulmonary function Acute myocardial infarction Congestive heart failure (< 1 month) History of inflammatory bowel disease Medical patient at bed rest Age 61-74 Arthroscopic surgery Major open surgery (> 45 min) Laparoscopic surgery (> 45 min) Malignancy Confined to bed (> 72 hours) Immobilizing plaster cast Central venous access Age >= 75 History of VTE Family history of VTE Factor V Leiden Prothrombin [id number] Lupus anticoagulant Anticardiolipin antibodies Elevated serum homocysteine Heparin-induced thrombocytopenia Other congenital or acquired thrombophilia Stroke (< 1 month) Elective arthroplasty Hip, pelvis, or leg fracture Acute spinal cord injury (< 1 month) Prophylaxis Regimen Total Risk Factor Score Risk Level Prophylaxis Regimen 0-1 Low Early ambulation 2 Moderate Order ONE of the following: *Sequential Compression Device (SCD) *Heparin 5000 units SQ BID 3-4 Higher Order ONE of the following medications: *Heparin 5000 units SQ TID *Enoxaparin/Lovenox 40 mg SQ daily (WT < 150 kg, CrCl > 30 mL/min) *Enoxaparin/Lovenox 30 mg SQ daily (WT < 150 kg, CrCl > 10-29 mL/min) *Enoxaparin/Lovenox 30 mg SQ BID (WT < 150 kg, CrCl > 30 mL/min) AND/OR *Sequential Compression Device (SCD) 5 or more Highest Order ONE of the following medications: *Heparin 5000 units SQ TID (Preferred with Epidurals) *Enoxaparin/Lovenox 40 mg SQ daily (WT < 150 kg, CrCl > 30 mL/min) *Enoxaparin/Lovenox 30 mg SQ daily (WT < 150 kg, CrCl > 10-29 mL/min) *Enoxaparin/Lovenox 30 mg SQ BID (WT < 150 kg, CrCl > 30 mL/min) AND *Sequential Compression Device (SCD) Assessment and Plan Assessment and Plan 67 y/o male with a history of ankylosing spondylitis, COPD on home O2 2L, emphysema, HTN, Chronic pain, HLD, CAD, [place] presented to the ED with complaints of abdominal pain and sob since Friday SIRS, WBC 14.6, tachycardia Chest xray reviewed and shows no acute abnormalities -C diff ordered, stool studies ordered -UA ordered -IV antibiotics vanco and zosyn -Lactinex TID -IVF for hydration COPD exacerbation on chronic O2 -Continue oxygen 2 L -DuoNeb ordered -Cont home Zithromax -Cont home prednisone -Consult pulmonology Abdominal pain, suspect radiculopathy Abdominal CT reviewed and shows no acute abnormalities -Morphine IV for pain when BP >100 -MRI lumbar spine ordered Chronic back pain -Cont home medication CAD, chronic -Resume home asa and plavix DVT prophylaxis: SCDs Discussed Condition With patient and rn Mavis Davila March 24, 2018 04:01
[2018-03-24 04:59] LABS: BILIRUBIN, URINE NEG (NEG); BLOOD, URINE TRACE (NEG); GLUCOSE,URINE NEG (NEG); KETONE, URINE NEG (NEG); MUCUS URINE FEW /lpf (OCC); NITRITE,URINE NEG (NEG); URINE COLOR LIGHT-YELLOW (YELLW/STRAW); URINE LEUKOCYTE ESTERASE NEG (NEG)
[2018-03-24] MEDS ORDERED: LINACLOTIDE 290 MCG PO SCH (09:00)
[2018-03-24] MEDS ORDERED: ARFORMOTEROL 15 MCG/2 ML INH SCH (09:00)
[2018-03-24] MEDS: LACTOBACILLUS ACIDOPHILUS TAB PO SCH ×3 (09:50→17:40)
[2018-03-24] MEDS: ASPIRIN 81 MG CHEW TAB CHEW SCH (09:50)
[2018-03-24] MEDS: METOCLOPRAMIDE HCL 10 MG TAB PO SCH ×2 (09:50→21:37)
[2018-03-24] MEDS: PREGABALIN 100 MG CAP PO SCH ×2 (09:50→21:36)
[2018-03-24] MEDS: SPIRONOLACTONE 25 MG TAB PO SCH ×2 (09:50→17:40)
[2018-03-24] MEDS: PANTOPRAZOLE SOD 40 MG DELAYED RELEASE TAB PO SCH (09:50)
[2018-03-24] MEDS: predniSONE 20 MG TAB PO SCH ×2 (09:50→21:37)
[2018-03-24] MEDS: CLOPIDOGREL 75 MG TAB PO SCH (09:50)
[2018-03-24] MEDS: SODIUM CHLORIDE 0.9% FLUSH 10 ML FLUSH IV FLUSH SCH ×2 (09:51→21:00)
[2018-03-24] MEDS: ACETAMINOPHEN/HYDROcodone 325 MG/10 MG TAB PO PRN ×3 (09:51→21:36)
[2018-03-24] MEDS: BUDESONIDE-FORMOTEROL 80/4.5 MCG INHALER INH SCH ×2 (09:58→21:32)
--- NOTE | 2018-03-24 11:12 | HHI.PR ---
Subjective Remarks Follow-up COPD exacerbation March 24, 2018-patient seen and examined, reports some improvement of shortness of breath Objective Vitals Vital Signs Date Time Temp Pulse Resp B/P (MAP) Pulse Ox O2 Delivery O2 Flow Rate FiO2 03/24/18 08:55 99 Nasal Cannula 2.00 03/24/18 08:16 Nasal Cannula 2.00 03/24/18 08:13 98.1 62 20 99/53 (68) 97 03/24/18 03:43 89/53 (65) 03/24/18 03:28 98 Nasal Cannula 2.00 03/24/18 03:22 98.1 70 16 89/53 (65) 97 03/24/18 03:01 20 03/24/18 02:22 03/24/18 01:08 80 18 101/58 (72) 97 Nasal Cannula 2.00 03/23/18 23:56 76 18 104/58 (73) 99 Nasal Cannula 2.00 03/23/18 22:55 78 18 115/54 (74) 100 Nasal Cannula 2.00 03/23/18 22:08 76 18 113/65 (81) 98 Nasal Cannula 2.00 03/23/18 20:51 85 20 108/58 (75) 99 Nasal Cannula 2.00 03/23/18 20:46 18 03/23/18 20:12 99 Nasal Cannula 2.00 03/23/18 18:44 98.5 105 26 116/57 (76) 93 I/O 03/23/18 03/23/18 03/23/18 03/24/18 03/24/18 03/24/18 07:00 15:00 23:00 07:00 15:00 23:00 Intake Total 500 ml Balance 500 ml Intake Oral 200 ml IV Total 300 ml # Voids 2 1 Result Diagram: 03/23/18 2030 03/23/182125 Imaging Last Impressions Abdomen/Pelvis CT 03/23/181928 Signed Impressions: Service Date/Time: Friday, March 23, 2018 22:41 - CONCLUSION: Minimal airspace disease in the lung bases. Solid organs are unremarkable. Pronounced rightward lumbar scoliosis. Keanu Null MD Chest X-Ray 03/23/181906 Signed Impressions: Service Date/Time: Friday, March 23, 2018 19:46 - CONCLUSION: 1. No acute findings. Basilar lung scarring and pleural thickening. Lauro Orozco MD Objective Remarks GENERAL: NAD SKIN: Warm and dry. HEAD: Normocephalic. EYES: No scleral icterus. No injection or drainage. NECK: Supple, trachea midline. No JVD or lymphadenopathy. CARDIOVASCULAR: Regular rate and rhythm without murmurs, gallops, or rubs. RESPIRATORY: Breath sounds equal bilaterally. No accessory muscle use. GASTROINTESTINAL: Abdomen soft, non-tender, nondistended. MUSCULOSKELETAL: No cyanosis, or edema. BACK: Nontender without obvious deformity. No CVA tenderness. A/P Problem List: (1) SIRS (systemic inflammatory response syndrome) ICD Code: R65.10 - Systemic inflammatory response syndrome (SIRS) of non- infectious origin without acute organ dysfunction (2) COPD with exacerbation ICD Code: J44.1 - Chronic obstructive pulmonary disease with (acute) exacerbation Assessment and Plan 67 years old man with SIRS, WBC 14.6, tachycardia Chest xray reviewed and shows no acute abnormalities -C diff PCR pending -UA negative -IV antibiotics Vancomycin and Zosyn -Lactinex TID -IVF for hydration COPD exacerbation on chronic O2-Improving -Continue oxygen 2 L -DuoNeb ordered -Cont home Zithromax -Cont home prednisone -Pulmonology consultation pending Tobacco cessation strongly encouraged Tobacco abuse Tobacco cessation strongly encouraged Hypotension Continue with IV fluid hydration May consider Midodrine caution with pain medication Abdominal pain, suspect radiculopathy Abdominal CT reviewed and shows no acute abnormalities -Morphine IV for pain when BP >100 -MRI lumbar spine pending Chronic back pain -Cont home medication CAD, chronic -continue home asa and Plavix DVT prophylaxis: Colby Rojas MD March 24, 2018 11:12
--- NOTE | 2018-03-24 11:26 | EKG ---
Date Performed: 03/23/2018 Time Performed: 19:16:17 PTAGE: 67 years EKG: Sinus rhythm NORMAL ECG PREVIOUS TRACING : 07/29/2010 17.10 DOCTOR: Keanu Benoit Interpretating Date/Time 03/24/2018 11:25:24
--- NOTE | 2018-03-24 12:27 | RADRPT ---
EXAM DATE/TIME: 03/24/2018 11:47 [facility] COMPARISON: No previous studies available for comparison. INDICATIONS : Chronic back pain. MEDICAL HISTORY : Hypertension. Chronic obstructive pulmonary disease. SURGICAL HISTORY : cardiac stent, cyst removed from back ENCOUNTER: Subsequent ACUITY: 2 day PAIN SCORE: 2/10 LOCATION: lower back TECHNIQUE: Multiplanar multisequence MRI of the lumbar spine was performed without contrast. FINDINGS: The most caudal appearing lumbar vertebra is numbered as L5. VERTEBRAE: Homogeneous signal. Normal alignment. No acute or subacute compression fractures are demonstrated. T here is some chronic scalloping along the superior endplates of L2, L4 and L5. There is disc dehydrat ion all levels. There is some disc space narrowing at L2-3, L3-4 and L5-S1. There is curvature of the lumbar spine to the right. CONUS: Normal level and configuration. T12-L1: The thecal sac has a normal diameter. No evidence of disc bulge or protrusion. The neural foramina are patent bilaterally. L1-L2: The thecal sac has a normal diameter. No evidence of disc bulge or protrusion. The neural foramina are patent bilaterally. There is some clumping of the nerve roots along the left lateral aspect of th e spinal canal. L2-L3: The thecal sac has a normal diameter. No evidence of disc bulge or protrusion. The neural foramina are patent bilaterally. There is some clumping of the nerve roots along the left lateral aspect of th e spinal canal. L3-L4: The thecal sac has a normal diameter. No evidence of disc bulge or protrusion. The neural foramina are patent bilaterally. L4-L5: The thecal sac has a normal diameter. No evidence of disc bulge or protrusion. The neural foramina are patent bilaterally. Bilateral facet arthritis. L5-S1: The thecal sac has a normal diameter. No evidence of disc bulge or protrusion. The neural foramina are patent bilaterally. Bilateral facet arthritis. CONCLUSION: 1. There is scoliosis with curvature of the lumbar spine to the right. 2. There are mild degenerative changes involving the lumbar spine with bilateral facet arthritis josé cially L4-5 and L5-S1 3. There is some clumping of the nerve roots along the left lateral aspect of the spinal canal at the L1-2 and L2-3 level. This most likely related to patient's scoliosis. This could also be seen with a rachnoiditis. This needs to be correlated with patient's physical, clinical exam and medical history. 4. No evidence of any significant spinal canal stenosis.. Lino Frias MD on March 24, 2018 at 12:19 Board Certified Radiologist. This report was verified electronically.
[2018-03-24] MEDS: SODIUM CHLOR 0.9% 1000 ML INJ 1,000 ML IV SCH (12:37)
[2018-03-24] MEDS ORDERED: TAMSULOSIN HCL 0.4 MG CAP PO SCH (21:00)
[2018-03-24] MEDS ORDERED: MELATONIN 5 MG TAB PO PRN (21:00)
[2018-03-24] MEDS ORDERED: NEBIVOLOL 5 MG TAB PO SCH (21:00)
[2018-03-24] MEDS ORDERED: ATORVASTATIN 10 MG TAB PO SCH (21:00)
--- NOTE | 2018-03-24 21:18 | MB ---
cc: Eldon Schneider MD, Arjun D MD DATE: 03/24/2018 REQUESTING PHYSICIAN: Dr. Colby Graham REASON FOR CONSULTATION: COPD exacerbation. HISTORY OF PRESENT ILLNESS: Mr. Bond is a 67-year-old male with history of COPD. He is oxygen dependent. History of ankylosing spondylosis. He follows with Dr. Euceda and he takes Remicade. He came to the hospital with 2 day history of worsening of his shortness of breath. He had mild abdominal discomfort. No nausea, vomiting. No chest pain. He had cough, small amount of sputum production. No fever or chills. Because of the worsening of symptoms, he came to the hospital and he had workup done. His CBC shows WBC count of 14.6, hemoglobin 9.8, hematocrit 30.6, MCV 66. Platelet count 403. Sodium 134, potassium 3.7, chloride 100, CO2 of 26, BUN 12, creatinine 0.73, AST 28, ALT 23. His INR is 1.0. Chest x-ray shows no acute infiltrate. CT scan of the abdomen shows minimal airspace disease in the lung bases. Blood cultures so far are normal. PAST MEDICAL HISTORY: Significant for history of COPD, hypertension, coronary artery disease, history of [place], history of ankylosing spondylosis, history of cardiac stent. MEDICATIONS: He is currently taking 1. Spiriva once a day. 2. Zithromax 250 mg a day. 3. Bystolic 5 mg a day. 4. Flomax 0.4 mg. 5. Lipitor 10 mg a day. 6. Melatonin 5 mg at nighttime. 7. Prednisone 20 mg twice a day. 8. Symbicort 80/4.5 two puffs twice a day. 10. Reglan 10 mg twice a day. 11. Plavix 75 mg a day. 12. Protonix 40 mg a day. 13. Tizanidine 4 mg twice a day. 14. Albuterol Atrovent nebulizer treatment. ALLERGIES: HE IS ALLERGIC TO BECLOMETHASONE. SOCIAL HISTORY: He is . 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 He did all kinds of work. He has a history of smoking continues to smoke 1 pack of cigarettes. No alcohol abuse. FAMILY HISTORY: He has 4 children. He has twin sons, both of them have ankylosing spondylosis. REVIEW OF SYSTEMS: Normally, he is up, around and active. Uses oxygen all the time. No seizure, stroke or epilepsy. No malignancy. PHYSICAL EXAMINATION: GENERAL: Thin built, elderly male, pleasant, not in any acute distress. VITAL SIGNS: Blood pressure 93/62, heart rate 68, respirations 16, temperature 98.5. HEENT: Pupils are equal and reactive. He has bilateral cataract surgery done. Oral mucosa and nasal mucosa normal. NECK: Supple. JVP not raised. CHEST: Equal bilaterally. He has expiratory rhonchi. CARDIOVASCULAR: S1, S2 normal. ABDOMEN: Benign. EXTREMITIES: No edema. IMPRESSION: 1. Chronic obstructive pulmonary disease exacerbation with bronchitis. 2. Ankylosing spondylosis. 3. Coronary artery disease. PLAN: I discussed with the patient. We will give him antibiotic. Continue prednisone 20 mg a day. I will put him on albuterol Atrovent and Spiriva once a day. Symbicort twice a day. Melatonin at nighttime for sleep. Clinically, he feels much better, anxious to go home. Further treatment will depend on the course in the hospital. Thank you, Dr. Colby Graham for this consult. MD SELENA Lr/ , 08:52 PM , 09:17 PM
[2018-03-24] MEDS ORDERED: AZITHROMYCIN 250 MG TAB PO SCH (22:00)
[2018-03-25] MEDS: SODIUM CHLOR 0.9% 1000 ML INJ 1,000 ML IV SCH (01:06)
[2018-03-25 03:28] VITALS: BP 105/66; PULSE 74; RESP 17; TEMP 97.9; O2SAT 95
[2018-03-25] MEDS: ACETAMINOPHEN/HYDROcodone 325 MG/10 MG TAB PO PRN ×2 (03:40→09:46)
[2018-03-25] MEDS: RESP: ALBUTEROL 2.5 MG/IPRATROPIUM 0.5 MG NEB (SCH) INH ×2 (03:50→07:54)
[2018-03-25 07:55] VITALS: O2SAT 98
[2018-03-25 08:06] VITALS: BP 109/56; PULSE 100; RESP 20; TEMP 97.6; O2SAT 100
[2018-03-25] MEDS: ASPIRIN 81 MG CHEW TAB CHEW SCH (08:56)
[2018-03-25] MEDS: LACTOBACILLUS ACIDOPHILUS TAB PO SCH (08:56)
[2018-03-25] MEDS: PREGABALIN 100 MG CAP PO SCH (08:56)
[2018-03-25] MEDS: SPIRONOLACTONE 25 MG TAB PO SCH (08:56)
[2018-03-25] MEDS: CLOPIDOGREL 75 MG TAB PO SCH (08:57)
[2018-03-25] MEDS: METOCLOPRAMIDE HCL 10 MG TAB PO SCH (08:57)
[2018-03-25] MEDS: PANTOPRAZOLE SOD 40 MG DELAYED RELEASE TAB PO SCH (08:57)
[2018-03-25] MEDS: BUDESONIDE-FORMOTEROL 80/4.5 MCG INHALER INH SCH (08:57)
[2018-03-25] MEDS: SODIUM CHLORIDE 0.9% FLUSH 10 ML FLUSH IV FLUSH SCH (08:57)
[2018-03-25] MEDS: predniSONE 20 MG TAB PO SCH (08:57)
[2018-03-25] MEDS ORDERED: TIOTROPIUM BROMIDE 18 MCG INH INH SCH (09:00)
[2018-03-25 09:32] LABS: AUTOMATED NEUTROPHIL # 10.9 TH/MM3 (1.8-7.7); BASOPHIL % 0.1 % (0.0-2.0); HEMATOCRIT 27.7 % (39.0-51.0); HEMOGLOBIN 8.6 GM/DL (13.0-17.0); LYMPH % 6.9 % (9.0-44.0); LYMPHOCYTE # 0.9 TH/MM3 (1.0-4.8); MEAN CORPUSCULAR HEMOGLOBIN 20.4 PG (27.0-34.0); MEAN PLATELET VOLUME 7.6 FL (7.0-11.0); MONO % 6.5 % (0.0-8.0); MONOCYTE # 0.8 TH/MM3 (0-0.9); NEUT % 86.5 % (16.0-70.0); PLATELET COUNT 395 TH/MM3 (150-450); WHITE BLOOD COUNT 12.6 TH/MM3 (4.0-11.0)
[2018-03-25 10:01] LABS: BICARBONATE 25.4 MEQ/L (21.0-32.0); CALCIUM 9.6 MG/DL (8.5-10.1); CREATININE 0.68 MG/DL (0.60-1.30)
[2018-03-25] MEDS ORDERED: PRED20 PO (11:31)
[2018-03-25] MEDS ORDERED: AZIT250T3 PO (11:31)
[2018-03-25] MEDS ORDERED: SPIRCAP INH (11:31)
--- NOTE | 2018-03-25 11:31 | HHI.DCPOC ---
Discharge Care Plan Diagnosis: (1) COPD with exacerbation Your Health Problems Are: Chronic Pain Cough Shortness of Breath Goals to Promote Your Health * To prevent worsening of your condition and complications * To maintain your health at the optimal level Directions to Meet Your Goals Take your medications as prescribed Follow your dietary instruction Follow activity as directed Keep your appointments as scheduled Take your immunizations and boosters as scheduled If your symptoms worsen call your PCP, if no PCP go to Urgent Care Center or Emergency Room Smoking is Dangerous to Your Health. Avoid second hand smoke Call the 24-hour hour crisis hotline for domestic abuse at [facility] [employer] March 25, 2018 11:31
[2018-03-25 11:43] VITALS: BP 122/63; PULSE 89; RESP 18; TEMP 98; O2SAT 98
--- NOTE | 2018-03-25 11:59 | HHI.PR ---
Subjective Remarks Follow-up COPD exacerbation March 24, 2018-patient seen and examined, reports some improvement of shortness of breath March 25, 2018-patient seen and examined, no SOB/CP. states he doing well and wants to go home Objective Vitals Vital Signs Date Time Temp Pulse Resp B/P (MAP) Pulse Ox O2 Delivery O2 Flow Rate FiO2 03/25/18 11:43 98.0 89 18 122/63 (82) 98 03/25/18 08:19 Nasal Cannula 2.00 03/25/18 08:06 97.6 100 20 109/56 (73) 100 03/25/18 07:55 98 Nasal Cannula 2.00 03/25/18 06:31 18 03/25/18 03:28 97.9 74 17 105/66 (79) 95 03/24/18 23:42 98.2 65 16 91/55 (67) 100 03/24/18 23:11 18 03/24/18 21:30 Nasal Cannula 2.00 03/24/18 21:04 98 Nasal Cannula 2.00 03/24/18 20:07 68 16 93/52 (66) 98 03/24/18 14:55 98.5 82 16 100/56 (71) 97 03/24/18 12:27 98.5 63 16 101/53 (69) 97 I/O 03/24/18 03/24/18 03/24/18 03/25/18 03/25/18 03/25/18 07:00 15:00 23:00 07:00 15:00 23:00 Intake Total 500 ml 1000 ml 1000 ml Balance 500 ml 1000 ml 1000 ml Intake Oral 200 ml IV Total 300 ml 1000 ml 1000 ml # Voids 2 1 2 2 Result Diagram: 03/25/18 0854 03/25/18 0854 Imaging Last Impressions Lumbar Spine MRI 03/24/18 0000 Signed Impressions: Service Date/Time: Saturday, March 24, 2018 11:47 - CONCLUSION: 1. There is scoliosis with curvature of the lumbar spine to the right. 2. There are mild degenerative changes involving the lumbar spine with bilateral facet arthritis especially L4-5 and L5-S1 3. There is some clumping of the nerve roots along the left lateral aspect of the spinal canal at the L1-2 and L2-3 level. This most likely related to patient's scoliosis. This could also be seen with arachnoiditis. This needs to be correlated with patient's physical, clinical exam and medical history. 4. No evidence of any significant spinal canal stenosis.. Lino Frias MD Abdomen/Pelvis CT [id number]/[id number] Signed Impressions: Service Date/Time: Friday, March 23, 2018 22:41 - CONCLUSION: Minimal airspace disease in the lung bases. Solid organs are unremarkable. Pronounced rightward lumbar scoliosis. Keanu Null MD Chest X-Ray [id number] Signed Impressions: Service Date/Time: Friday, March 23, 2018 19:46 - CONCLUSION: 1. No acute findings. Basilar lung scarring and pleural thickening. Lauro Orozco MD Objective Remarks GENERAL: NAD SKIN: Warm and dry. HEAD: Normocephalic. EYES: No scleral icterus. No injection or drainage. NECK: Supple, trachea midline. No JVD or lymphadenopathy. CARDIOVASCULAR: Regular rate and rhythm without murmurs, gallops, or rubs. RESPIRATORY: Breath sounds equal bilaterally. No accessory muscle use. GASTROINTESTINAL: Abdomen soft, non-tender, nondistended. MUSCULOSKELETAL: No cyanosis, or edema. BACK: Nontender without obvious deformity. No CVA tenderness. Procedures none A/P Problem List: (1) SIRS (systemic inflammatory response syndrome) ICD Code: R65.10 - Systemic inflammatory response syndrome (SIRS) of non- infectious origin without acute organ dysfunction (2) COPD with exacerbation ICD Code: J44.1 - Chronic obstructive pulmonary disease with (acute) exacerbation Assessment and Plan 67 years old man with SIRS, WBC 14.6, tachycardia-resolved Chest xray reviewed and shows no acute abnormalities -C diff PCR pending -UA negative -IV antibiotics Vancomycin and Zosyn, will switch to p.o. antibiotics on discharge -Lactinex TID -IVF for hydration COPD exacerbation on chronic O2-Improving -Continue oxygen 2 L -DuoNeb ordered -Cont home Zithromax -Cont home prednisone -Pulmonology input appreciated Tobacco cessation strongly encouraged Tobacco abuse Tobacco cessation strongly encouraged Hypotension Improving with IV fluid hydration caution with pain medication Abdominal pain, suspect radiculopathy Abdominal CT reviewed and shows no acute abnormalities -Morphine IV for pain when BP >100 -MRI lumbar spine pending Chronic back pain -Cont home medication CAD, chronic -continue home asa and Plavix DVT prophylaxis: Colby Rojas MD March 25, 2018 11:59
--- NOTE | 2018-03-25 12:02 | HHI.DS ---
Discharge Summary Admission Date March 24, 2018 at 00:30 Discharge Date: March 25, 2018 Admitting Diagnosis Copd exacerbation, Abdominal pain, diarrhea, leukocytosis (1) SIRS (systemic inflammatory response syndrome) ICD Code: R65.10 - Systemic inflammatory response syndrome (SIRS) of non- infectious origin without acute organ dysfunction (2) COPD with exacerbation ICD Code: J44.1 - Chronic obstructive pulmonary disease with (acute) exacerbation Procedures none Brief History - From Admission 67 y/o male with a history of ankylosing spondylitis, COPD on home O2 2L, emphysema, HTN, Chronic pain, HLD, CAD, [place] presented to the ED with complaints of abdominal pain and sob since Friday Patient states on Friday morning he became short of breath with exertion, tightness in chest when he takes a deep breath, Productive cough with brownish sputum. He states today he followed up with his PCP who sent him to the ED for further evaluation. He denies fever or chills. He is also complaining of abdominal pain to the right groin that is sharp and intermittent with associated loose stools. No associated nausea or vomiting. Denies any red or black stools. CBC/BMP: 03/25/18 0854 03/25/18 0854 Significant Findings Laboratory Tests Test 03/23/18 20:30 03/23/18 21:08 03/23/18 21:26 03/24/18 04:35 White Blood Count 14.6 TH/MM3 (4.0-11.0) Hemoglobin 9.8 GM/DL (13.0-17.0) Hematocrit 30.6 % (39.0-51.0) Mean Corpuscular Volume 66.3 FL (80.0-100.0) Mean Corpuscular Hemoglobin 21.2 PG (27.0-34.0) Red Cell Distribution Width 18.9 % (11.6-17.2) Neutrophils (%) (Auto) 75.2 % (16.0-70.0) Monocytes (%) (Auto) 10.7 % (0.0-8.0) Neutrophils # (Auto) 11.0 TH/MM3 (1.8-7.7) Monocytes # (Auto) 1.6 TH/MM3 (0-0.9) Activated Partial Thromboplast Time 21.9 SEC (24.3-30.1) C-Reactive Protein 11.80 MG/DL (0.00-0.30) Albumin 2.9 GM/DL (3.4-5.0) Sodium Level 135 MEQ/L (136-145) Total Creatine Kinase 29 U/L (39-308) Troponin I LESS THAN 0.02 NG/ML Urine Specific Turner GREATER THAN 1.050 Urine Occult Blood TRACE (NEG) Urine Mucus FEW /lpf (OCC) Test 03/25/18 08:54 White Blood Count 12.6 TH/MM3 (4.0-11.0) Red Blood Count 4.20 MIL/MM3 (4.50-5.90) Hemoglobin 8.6 GM/DL (13.0-17.0) Hematocrit 27.7 % (39.0-51.0) Mean Corpuscular Volume 66.0 FL (80.0-100.0) Mean Corpuscular Hemoglobin 20.4 PG (27.0-34.0) Mean Corpuscular Hemoglobin Concent 31.0 % (32.0-36.0) Red Cell Distribution Width 19.0 % (11.6-17.2) Neutrophils (%) (Auto) 86.5 % (16.0-70.0) Lymphocytes (%) (Auto) 6.9 % (9.0-44.0) Neutrophils # (Auto) 10.9 TH/MM3 (1.8-7.7) Lymphocytes # (Auto) 0.9 TH/MM3 (1.0-4.8) Blood Urea Nitrogen 6 MG/DL (7-18) Random Glucose 123 MG/DL (74-106) PE at Discharge GENERAL: NAD SKIN: Warm and dry. HEAD: Normocephalic. EYES: No scleral icterus. No injection or drainage. NECK: Supple, trachea midline. No JVD or lymphadenopathy. CARDIOVASCULAR: Regular rate and rhythm without murmurs, gallops, or rubs. RESPIRATORY: Breath sounds equal bilaterally. No accessory muscle use. GASTROINTESTINAL: Abdomen soft, non-tender, nondistended. MUSCULOSKELETAL: No cyanosis, or edema. BACK: Nontender without obvious deformity. No CVA tenderness. Hospital Course While in hospital, patient was treated for: SIRS, WBC 14.6, tachycardia-resolved Chest xray reviewed and shows no acute abnormalities -UA negative -Patient was treated with IV antibiotics Vancomycin and Zosyn, and switched to azithromycin on discharge -Lactinex TID -IVF for hydration COPD exacerbation on chronic O2-Improved steroid, bronchodilators and antibiotics. Pulmonary medicine was consulted. Tobacco cessation was strongly encouraged. Prior to discharge, patient conditions improve Tobacco abuse Tobacco cessation strongly encouraged Hypotension Improved with IV fluid hydration Abdominal pain, suspect radiculopathy Abdominal CT reviewed and shows no acute abnormalities -Morphine IV for pain when BP >100 -MRI lumbar spine pending Chronic back pain -Cont home medication CAD, chronic -continue home asa and Plavix DVT prophylaxis: SCDs Pt Condition on Discharge: Good Discharge Disposition: Discharge Home Discharge Time: <= 30 minutes Discharge Instructions DIET: Follow Instructions for: Heart Healthy Diet Activities you can perform: Regular-No Restrictions Follow up Referrals: PCP Follow-up - 2-3 Days New Medications: Azithromycin (Azithromycin) 250 Mg Tab 250 MG PO Q24H for COPD, #3 TAB Prednisone (Prednisone) 20 Mg Tab 20 MG PO BID for COPD for 5 Days, #10 TAB Tiotropium Inh (Spiriva Handihaler) 18 Mcg Cap 18 MCG INH DAILY for COPD for 30 Days, #1 INHALER 1 capsule = 18 mcg Continued Medications: Arformoterol Neb (Brovana Neb) 15 Mcg/2 Ml Vial 1 NEBULE NEB BID for Broncospasm, #60 NEBULE Maintenance treatment of bronchoconstriction in COPD. Aspirin (Aspirin Low Dose) 81 Mg Chew 81 MG CHEW DAILY, TAB 0 Refills Atorvastatin (Atorvastatin) 10 Mg Tab 10 MG PO HS for Cholesterol Management, #30 TAB 0 Refills Betamethasone Dipropionate Topical (Betamethasone Dipropionate Topical) 0.05% Cream 1 APPLIC TOPICAL BID for Dermatoses, #15 GM 0 Refills Budesonide-Formoterol Inh (Symbicort Inh) 80-4.5 Mcg/Act Aero 1 PUFF INH Q12HR for Asthma Management, #1 INHALER 0 Refills Clopidogrel (Clopidogrel) 75 Mg Tab 75 MG PO DAILY for Blood Clot Prevention, #30 TAB 0 Refills Dexlansoprazole (Dexilant) 60 Mg Cap.dr.bp 60 MG PO DAILY Fluticasone Nasal [place] (Fluticasone Nasal [place]) 50 Mcg/Act Naspr 50 MCG EACH NARE BID PRN for prn, #1 BOTTLE 0 Refills 50 mcg/spray Hydrocodone-Acetaminophen (Hydrocodone-Acetaminophen) 10-300 Tab 1 TAB PO Q6H PRN for PAIN, TAB 0 Refills Hydromorphone (Hydromorphone) 8 Mg Tab 8 MG PO Q6H PRN for Pain Management, TAB 0 Refills Infliximab Inj (Remicade Inj) 100 Mg Inj Lidocaine (Lidoderm) 5 % Adh..patch Linaclotide (Linzess) 290 Mcg Cap 290 MCG PO DAILY, CAP 0 Refills Metoclopramide (Metoclopramide) 10 Mg Tab 10 MG PO BID, TAB 0 Refills Morphine Sulfate (Morphine Sulfate) 1 Pow Pow Nebivolol (Bystolic) 5 Mg Tab 5 MG PO HS for Blood Pressure Management, #30 TAB 0 Refills Potassium Chloride ER (Potassium Chloride ER) 8 Meq Cap 8 MEQ PO BID for Electrolyte Replacement, #30 CAP 0 Refills Pregabalin (Lyrica) 100 Mg Cap 100 MG PO BID, #60 CAP 0 Refills Spironolactone (Spironolactone) 25 Mg Tab 25 MG PO BIDPC, #60 TAB 0 Refills Tamsulosin (Tamsulosin) 0.4 Mg Cap 0.4 MG PO HS for Manage Prostate Problems, #30 CAP 0 Refills Tizanidine (Tizanidine) 4 Mg Cap 4 MG PO BID for Muscle Spasm, CAP 0 Refills Zolpidem (Zolpidem) 10 Mg Tab 12.5 MG PO HS PRN for INSOMNIA, TAB 0 Refills [oxygen ] () 2 LITER DAILY Discontinued Medications: Cyclobenzaprine (Flexeril) 10 Mg Tab 10 MG PO HS for Muscle Spasm, #90 TAB 0 Refills Methylprednisolone (Methylprednisolone) 8 Mg Tab 10 MG PO HS, TAB 0 Refills Colby Graham MD March 25, 2018 12:02
== END 2018-03-25 15:58 | disposition home or self-care (01) ==
LOC: NEPE 18:39 → NEDA 03-24 00:30 → NEPHCDU 03-24 02:27
PROVIDERS: ADMIT Hospitalist; ATTEND Hospitalist
DX: J44.1 Chronic obstructive pulmonary disease with (acute) exacerbation (principal); R65.10 Systemic inflammatory response syndrome (SIRS) of non-infectious origin without acute organ dysfunction; R10.9 Unspecified abdominal pain; I95.9 Hypotension, unspecified; D72.829 Elevated white blood cell count, unspecified; I25.10 Atherosclerotic heart disease of native coronary artery without angina pectoris; I11.0 Hypertensive heart disease with heart failure; I50.9 Heart failure, unspecified; E78.5 Hyperlipidemia, unspecified; I25.2 Old myocardial infarction; K21.9 Gastro-esophageal reflux disease without esophagitis; K74.60 Unspecified cirrhosis of liver; R91.8 Other nonspecific abnormal finding of lung field; M41.86 Other forms of scoliosis, lumbar region; M45.9 Ankylosing spondylitis of unspecified sites in spine; Z99.81 Dependence on supplemental oxygen; Z95.5 Presence of coronary angioplasty implant and graft; Z79.899 Other long term (current) drug therapy; Z79.82 Long term (current) use of aspirin
CPT/HCPCS: 71045; 72148; 74177; 80048; 80053; 81001; 82550; 83605; 83735; 83880; 84484; 85025; 85610; 85730; 86140; 87040; 93005; 94640; 94664; 96361; 96365; 96375; 96376; 99285; G0378; J2270; J2405; J2543; J3370; J7030; J7050; J7512; Q9967